=== PATIENT | male | born 1980 | race Caucasian/White ===

== ENCOUNTER 2022-01-08 12:38 | Inpatient (IN) ==
[2022-01-08 14:41] LABS: Basophils # 0.1 10*3/uL (0.0-0.2); Basophils % 0.5 % (0.0-0.8); Eosinophils # 0.3 10*3/uL (0.0-0.87); Eosinophils % 3.4 % (0.00-10.9); Hematocrit 42.3 VOL% (42.0-52.0); Hemoglobin 14.2 GM/DL (14.0-18.0); Immature Granulocytes % 0.7 %; Immature Granulocytes Absolute 0.07 #; Lymphocytes # 1.6 10*3/uL (1.4-4.0); Mean Corpuscular HGB Conc 33.6 GM/DL (32-36); Mean Corpuscular Volume 88.9 FL (87-102); Mean Platelet Volume 10.4 FL (9.6-12.0); Monocytes # 0.7 10*3/uL (0.11-0.8); Monocytes % 7.5 % (1.7-12.7); Neutrophils % 70.9 % (38.7-73.9); Platelet Count 224 T/CUMM (130-400); Red Blood Count 4.76 MC/CUMM (3.8-5.5); Red Cell Distribution Width 11.9 % (9.3-17.3); White Blood Count 9.5 T/CUMM (4-12)
[2022-01-08 15:03] LABS: Bilirubin,Total 0.4 MG/DL (0.20-1.00); Calcium 8.7 MG/DL (8.5-10.1); Osmolality,Calculated 273.7 MOS/KG (273-304); Potassium 3.5 MMOL/L (3.5-5.1); Total Protein 7.9 G/DL (6.4-8.2)
[2022-01-08] MEDS ORDERED: KETOROLAC 60 MG/2 ML VIAL IM ONE (15:49)
[2022-01-08] MEDS ORDERED: PIPERACILLIN/TAZOBACTAM 3,375 MG in SODIUM CHLORIDE 0.9% 100 ML IV STA (16:03)
[2022-01-08] MEDS ORDERED: KETOROLAC 30 MG/1 ML VIAL IV STA (16:18)
[2022-01-08] MEDS ORDERED: ONDANSETRON 4 MG/2 ML VIAL IV STA (18:08)
[2022-01-08] MEDS ORDERED: HYDROmorphone 1 MG/1 ML SYRINGE IV PRN (18:08)
[2022-01-08] MEDS ORDERED: HydrOXYzine PAMOATE 25 MG CAPSULE PO PRN (18:09)
[2022-01-08] MEDS: SODIUM CHLORIDE 0.9% 1,000 ML IV SCH (19:05)
[2022-01-08] MEDS ORDERED: ENOXAPARIN 40 MG/0.4 ML SYRINGE SUBCUT SCH (21:00)
[2022-01-08] MEDS: DIVALPROEX 500 MG TABLET PO SCH (21:33)
[2022-01-08] MEDS: PRAZOSIN 1 MG CAPSULE PO SCH (21:33)
[2022-01-08] MEDS ORDERED: buPROPion 100 MG TABLET PO SCH (22:00)
[2022-01-08] MEDS ORDERED: NICOTINE 21 MG/24 HR PATCH TRANSDERM PRN (23:51)
[2022-01-09] MEDS: VANCOMYCIN INJ 1,000 MG in SODIUM CHLORIDE 0.9% 250 ML IV SCH ×2 (02:25→14:56)
[2022-01-09] MEDS: SODIUM CHLORIDE 0.9% 1,000 ML IV SCH ×4 (02:26→15:44)
[2022-01-09] MEDS: DIVALPROEX 500 MG TABLET PO SCH ×2 (08:19→20:19)
[2022-01-09] MEDS ORDERED: traMADol 50 MG TABLET PO PRN (10:08)
[2022-01-09] MEDS: PIPERACILLIN/TAZOBACTAM 3,375 MG in SODIUM CHLORIDE 0.9% 100 ML IV SCH ×2 (10:22→17:59)
[2022-01-09] MEDS: ACETAMINOPHEN 325 MG TABLET PO PRN ×2 (10:22→20:17)
[2022-01-09 10:45] LABS: Basophils % 0.6 % (0.0-0.8); Eosinophils # 0.1 10*3/uL (0.0-0.87); Eosinophils % 2.2 % (0.00-10.9); Hematocrit 38.6 VOL% (42.0-52.0); Hemoglobin 12.7 GM/DL (14.0-18.0); Immature Granulocytes % 0.9 %; Immature Granulocytes Absolute 0.03 #; Lymphocytes # 0.5 10*3/uL (1.4-4.0); Lymphocytes % 15.9 % (21.2-54.2); Mean Corpuscular HGB Conc 32.9 GM/DL (32-36); Mean Corpuscular Volume 89.8 FL (87-102); Mean Platelet Volume 10.2 FL (9.6-12.0); Monocytes # 0.2 10*3/uL (0.11-0.8); Neutrophils % 75.4 % (38.7-73.9); Platelet Count 164 T/CUMM (130-400); Red Cell Distribution Width 11.9 % (9.3-17.3); White Blood Count 3.2 T/CUMM (4-12)
[2022-01-09 11:34] LABS: Alanine Aminotransferase 26 U/L (16-61); Albumin 2.8 G/DL (3.4-5.0); Alkaline Phosphatase 50 U/L (45-117); Aspartate Amino Transferase 19 U/L (0-37); Bilirubin,Total < 0.39 MG/DL (0.20-1.00); Blood Urea Nitrogen 13 MG/DL (7-18); Calcium 8.5 MG/DL (8.5-10.1); Carbon Dioxide 28 MMOL/L (21-32); Chloride 106 MMOL/L (98-107); Glucose 86 MG/DL (74-106); Osmolality,Calculated 275.5 MOS/KG (273-304); Potassium 3.7 MMOL/L (3.5-5.1); Sodium 139 MMOL/L (136-145); Total Protein 6.9 G/DL (6.4-8.2)
[2022-01-09] MEDS ORDERED: IBUPROFEN 400 MG TABLET PO PRN (12:03)
[2022-01-09] MEDS ORDERED: ONDANSETRON 4 MG/2 ML VIAL IV PRN (14:39)
[2022-01-09] MEDS: PRAZOSIN 1 MG CAPSULE PO SCH (20:19)
[2022-01-10] MEDS: VANCOMYCIN INJ 1,000 MG in SODIUM CHLORIDE 0.9% 250 ML IV SCH ×2 (02:34→14:35)
[2022-01-10] MEDS: PIPERACILLIN/TAZOBACTAM 3,375 MG in SODIUM CHLORIDE 0.9% 100 ML IV SCH ×3 (02:35→16:44)
[2022-01-10 06:37] LABS: Basophils % 0.9 % (0.0-0.8); Eosinophils # 0.1 10*3/uL (0.0-0.87); Eosinophils % 2.3 % (0.00-10.9); Hematocrit 37.5 VOL% (42.0-52.0); Hemoglobin 12.5 GM/DL (14.0-18.0); Immature Granulocytes % 2.3 %; Immature Granulocytes Absolute 0.05 #; Lymphocytes # 0.6 10*3/uL (1.4-4.0); Lymphocytes % 26.1 % (21.2-54.2); Mean Corpuscular HGB Conc 33.3 GM/DL (32-36); Mean Corpuscular Volume 89.1 FL (87-102); Monocytes # 0.4 10*3/uL (0.11-0.8); Monocytes % 16.5 % (1.7-12.7); Neutrophils % 51.9 % (38.7-73.9); Platelet Count 152 T/CUMM (130-400); Red Blood Count 4.21 MC/CUMM (3.8-5.5); Red Cell Distribution Width 11.9 % (9.3-17.3); White Blood Count 2.2 T/CUMM (4-12)
[2022-01-10 06:58] LABS: Alanine Aminotransferase 33 U/L (16-61); Albumin 2.5 G/DL (3.4-5.0); Alkaline Phosphatase 48 U/L (45-117); Aspartate Amino Transferase 27 U/L (0-37); Bilirubin,Total < 0.39 MG/DL (0.20-1.00); Blood Urea Nitrogen 9 MG/DL (7-18); Calcium 8.1 MG/DL (8.5-10.1); Carbon Dioxide 26 MMOL/L (21-32); Chloride 110 MMOL/L (98-107); Glucose 90 MG/DL (74-106); Osmolality,Calculated 281.1 MOS/KG (273-304); Potassium 3.6 MMOL/L (3.5-5.1); Sodium 142 MMOL/L (136-145); Total Protein 6.3 G/DL (6.4-8.2)
[2022-01-10 07:00] LABS: Band Neutrophils 3 % (0-10); Eosinophils 7 % (0-10); Hypochromia Slight; Lymphocytes 26 % (20-55); Microcytosis Slight; Platelet Estimate Adequate; Total Cells Counted 100
[2022-01-10] MEDS ORDERED: BUPIVACAINE MPF 0.25% 10 ML VIAL ONE (07:42)
[2022-01-10] MEDS ORDERED: LIDOCAINE 2% 5 ML VIAL ONE (08:03)
[2022-01-10] MEDS ORDERED: fentaNYL 100 MCG/2 ML VIAL ONE ×2 (08:03→08:37)
[2022-01-10] MEDS ORDERED: ONDANSETRON 4 MG/2 ML VIAL ONE (08:03)
[2022-01-10] MEDS ORDERED: propofoL 200 MG/20 ML VIAL IV ONE (08:03)
[2022-01-10] MEDS ORDERED: MIDAZOLAM 2 MG/2 ML VIAL ONE (08:03)
[2022-01-10] MEDS ORDERED: SEVOFLURANE 1 UNIT/15 MINUTE INH ONE (08:03)
[2022-01-10] MEDS ORDERED: LACTATED RINGERS 1,000 ML IV SCH (08:30)
[2022-01-10] MEDS: DIVALPROEX 500 MG TABLET PO SCH ×2 (10:17→20:57)
[2022-01-10 15:29] LABS: HIV Antigen/Antibody Result Nonreactive (Nonreactive)
[2022-01-10] MEDS: PRAZOSIN 1 MG CAPSULE PO SCH (20:56)
[2022-01-11] MEDS: VANCOMYCIN INJ 1,000 MG in SODIUM CHLORIDE 0.9% 250 ML IV SCH ×2 (02:40→15:20)
[2022-01-11] MEDS: PIPERACILLIN/TAZOBACTAM 3,375 MG in SODIUM CHLORIDE 0.9% 100 ML IV SCH ×2 (03:50→10:07)
[2022-01-11 06:34] LABS: Basophils % 1.4 % (0.0-0.8); Eosinophils # 0.1 10*3/uL (0.0-0.87); Eosinophils % 6.6 % (0.00-10.9); Hematocrit 38.2 VOL% (42.0-52.0); Hemoglobin 12.6 GM/DL (14.0-18.0); Immature Granulocytes % 2.8 %; Immature Granulocytes Absolute 0.06 #; Lymphocytes # 0.8 10*3/uL (1.4-4.0); Mean Corpuscular Volume 89.9 FL (87-102); Mean Platelet Volume 10.1 FL (9.6-12.0); Monocytes # 0.3 10*3/uL (0.11-0.8); Neutrophils % 34.2 % (38.7-73.9); Platelet Count 160 T/CUMM (130-400); Red Blood Count 4.25 MC/CUMM (3.8-5.5); Red Cell Distribution Width 11.9 % (9.3-17.3); White Blood Count 2.1 T/CUMM (4-12)
[2022-01-11 06:59] LABS: Band Neutrophils 7 % (0-10); Eosinophils 15 % (0-10); Lymphocytes 32 % (20-55); Microcytosis Slight; Total Cells Counted 100
[2022-01-11 07:00] LABS: Atypical Lymphocytes Few; Platelet Estimate Adequate
[2022-01-11 07:16] LABS: Alanine Aminotransferase 49 U/L (16-61); Albumin 2.3 G/DL (3.4-5.0); Alkaline Phosphatase 49 U/L (45-117); Aspartate Amino Transferase 47 U/L (0-37); Bilirubin,Total < 0.39 MG/DL (0.20-1.00); Blood Urea Nitrogen 12 MG/DL (7-18); Calcium 8.1 MG/DL (8.5-10.1); Carbon Dioxide 27 MMOL/L (21-32); Chloride 113 MMOL/L (98-107); Glucose 88 MG/DL (74-106); Osmolality,Calculated 286.7 MOS/KG (273-304); Potassium 3.8 MMOL/L (3.5-5.1); Sodium 145 MMOL/L (136-145); Total Protein 6.1 G/DL (6.4-8.2)
[2022-01-11] MEDS: DIVALPROEX 500 MG TABLET PO SCH (08:53)
[2022-01-11 11:35] VITALS: BP 107/70
== END 2022-01-11 15:17 | disposition home or self-care (01) | DRG 571 ==
LOC: N.ED 12:38 → N.EDINP 16:13 → N.5E 19:19
PROVIDERS: ADMIT Family Medicine; ATTEND Family Medicine